=== PATIENT | female | born 1995 | race Caucasian/White ===

== ENCOUNTER 2017-09-05 09:10 | Emergency (ER) | payer OTHER ==
[~2017-09-05] VITALS: Ht 167.6 cm; Wt 55.0 kg
[2017-09-05 09:11] VITALS: BP 202/122; PULSE 102; RESP 16; TEMP 98.4; O2SAT 100
[2017-09-05 09:12] VITALS: BP 191/118
[2017-09-05] MEDS ORDERED: MORPHINE SULFATE 4 MG/ML INJ IV PUSH ONE (09:30)
[2017-09-05] MEDS ORDERED: SODIUM CHLORID 0.9% 500 ML INJ 500 ML IV ONE (09:30)
[2017-09-05] MEDS ORDERED: SODIUM CHLORIDE 0.9% FLUSH 10 ML FLUSH IVF PRN (09:30)
[2017-09-05] MEDS: METOPROLOL TARTRATE 5 MG/5 ML VIAL IVS SCH ×3 (09:35→09:58)
--- NOTE | 2017-09-05 09:39 | PD ---
HPI Chief Complaint: Chest Pain Time Seen by Provider: 09:23 Travel History International Travel<30 days: No Contact w/Intl Traveler<30days: No Traveled to known affect area: No History of Present Illness HPI 22-year-old female presents the emergency Department with sudden onset severe left sided chest pain with radiation in the left arm since last night at 3 AM. Patient states the pain is constant and not worsened by anything specific. She feels she can't take a deep breath. Patient is noted to be hypertensive and tachycardic in triage. Patient is thin and active and only medication is control. She denies changes in her period. She denies bleeding issues in the past. Pain is currently an 8 out of 10 and constant. Patient denies nausea, heartburn, or vomiting. Patient has no known drug allergies. PFSH Past Medical History Medical History: Denies Significant Hx Tetanus Vaccination: < 5 Years ?: Not LMP: 09/04/17 Past Surgical History Surgical History: No Previous Surgery Social History Alcohol Use: No Tobacco Use: No Substance Use: No Allergies-Medications (Allergen,Severity, Reaction): Coded Allergies: No Known Allergies (Unverified , 09/05/17) Reported Meds & Prescriptions Reported Meds & Active Scripts Active Reported [ Control] Review of Systems Except as stated in HPI: all other systems reviewed are Neg General / Constitutional: No: Fever Eyes: No: Visual changes HENT: No: Headaches Cardiovascular: Positive: Chest Pain or Discomfort, No: Palpitations, Irregular Rhythm, Tachycardia, Diaphoresis, Syncope, Dyspnea on exertion, Varicosities, Edema, Varicosities, Phlebitis, Claudication Respiratory: No: Cough, Shortness of Breath, Wheezing, Pleuritic Pain Gastrointestinal: No: Nausea, Vomiting, Diarrhea, Abdominal Pain Genitourinary: No: Dysuria Musculoskeletal: No: Pain Skin: No Rash Neurologic: No: Weakness Psychiatric: No: Depression Endocrine: No: Polydipsia Hematologic/Lymphatic: No: Easy Bruising Physical Exam Narrative GENERAL: She appears in moderate anxiety and tearing noted. SKIN: Warm and dry. Normal color. Normal turgor. HEAD: Atraumatic. Normocephalic. EYES: Pupils equal and round. No scleral icterus. No injection or drainage. ENT: No nasal bleeding or discharge. Mucous membranes pink and moist. Pharynx is clear. Airway is patent. NECK: Trachea midline. Supple nontender. CARDIOVASCULAR: Regular rate and rhythm. Occasional skipped beat. No murmurs appreciated. RESPIRATORY: No accessory muscle use. Clear to auscultation. Breath sounds equal bilaterally. GASTROINTESTINAL: Abdomen soft, non-tender, nondistended. Hepatic and splenic margins not palpable. MUSCULOSKELETAL: Extremities without clubbing, cyanosis, or edema. No obvious deformities. NEUROLOGICAL: Awake and alert. No obvious cranial nerve deficits. Motor grossly within normal limits. Five out of 5 muscle strength in the arms and legs. Normal speech. PSYCHIATRIC: Appropriate mood and affect; insight and judgment normal. Data Data Last Documented VS Vital Signs Date Time Temp Pulse Resp B/P (MAP) Pulse Ox O2 Delivery O2 Flow Rate FiO2 09/05/17 10:15 136/90 (105) 09/05/17 09:55 71 18 Room Air 09/05/17 09:11 98.4 100 Orders Orders Electrocardiogram (09/05/17:24) Ckmb (Isoenzyme) Profile (09/05/17:24) Complete Blood Count With Diff (09/05/17:24) Comprehensive Metabolic Panel (09/05/17:24) Magnesium (Mg) (09/05/17:24) Prothrombin Time / Inr (Pt) (09/05/17:24) Act Partial Throm Time (Ptt) (09/05/17:24) Troponin I (09/05/17:24) Chest, Single Ap (09/05/17:24) Ecg Monitoring (09/05/17:24) Bilateral Bp Monitoring (09/05/17:24) Iv Access Insert/Monitor (09/05/17:24) Oximetry (09/05/17:24) Oxygen Administration (09/05/17:24) Morphine Inj (Morphine Inj) (09/05/17:30) Sodium Chloride 0.9% Flush (Ns Flush) (09/05/17:30) Metoprolol Tartrate Inj (Lopressor Inj) (09/05/17:30) Sodium Chlorid 0.9% 500 Ml Inj (Ns 500 M (09/05/17:30) Ct Pulmonary Angiogram (09/05/17:24) Ed Urine Pregnancytest Poc (12/6/17 09:24) Ondansetron Inj (Zofran Inj) (09/05/17 11:45) Iohexol 350 Inj (Omnipaque 350 Inj) (09/05/17 12:20) Electrocardiogram (09/05/17 ) Labs Laboratory Tests Test 09/05/17 09:55 White Blood Count 4.1 TH/MM3 Red Blood Count 4.30 MIL/MM3 Hemoglobin 12.1 GM/DL Hematocrit 36.1 % Mean Corpuscular Volume 84.0 FL Mean Corpuscular Hemoglobin 28.2 PG Mean Corpuscular Hemoglobin Concent 33.6 % Red Cell Distribution Width 13.6 % Platelet Count 200 TH/MM3 Mean Platelet Volume 9.6 FL Neutrophils (%) (Auto) 53.8 % Lymphocytes (%) (Auto) 38.8 % Monocytes (%) (Auto) 6.1 % Eosinophils (%) (Auto) 0.9 % Basophils (%) (Auto) 0.4 % Neutrophils # (Auto) 2.2 TH/MM3 Lymphocytes # (Auto) 1.6 TH/MM3 Monocytes # (Auto) 0.3 TH/MM3 Eosinophils # (Auto) 0.0 TH/MM3 Basophils # (Auto) 0.0 TH/MM3 CBC Comment DIFF FINAL Differential Comment Prothrombin Time 10.0 SEC Prothromb Time International Ratio 1.0 RATIO Activated Partial Thromboplast Time 26.9 SEC Blood Urea Nitrogen 11 MG/DL Creatinine 0.72 MG/DL Random Glucose 90 MG/DL Total Protein 7.3 GM/DL Albumin 3.7 GM/DL Calcium Level 8.7 MG/DL Magnesium Level 1.9 MG/DL Alkaline Phosphatase 44 U/L Aspartate Amino Transf (AST/SGOT) 16 U/L Alanine Aminotransferase (ALT/SGPT) 28 U/L Total Bilirubin 0.3 MG/DL Sodium Level 139 MEQ/L Potassium Level 3.8 MEQ/L Chloride Level 106 MEQ/L Carbon Dioxide Level 24.8 MEQ/L Anion Gap 8 MEQ/L Estimat Glomerular Filtration Rate 100 ML/MIN Total Creatine Kinase 54 U/L Troponin I LESS THAN 0.02 NG/ML MDM Medical Decision Making Medical Screen Exam Complete: Yes Emergency Medical Condition: Yes Differential Diagnosis Chest pain. Cardiac syndrome. Pericarditis. PE. Narrative Course Based on the patient's history and physical PE is certainly suggestive. EKG shows with sinus arrhythmia with a rate of 77. No significant ST changes are noted. This is reviewed with Dr. Camarillo. Labs ordered including CBC, CMP, urine , cardiac panel. Chest x-ray and chest CTA is ordered to rule out PE. IV access is obtained patient is given 2 mg morphine IV as well as 5 mg propranolol 3. Patient is given 324 mg aspirin by mouth. Chest x-ray is unremarkable for acute process per radiologist. CBC is unremarkable. Coagulation studies are normal. Chemistries are normal. Patient is not . CTA shows no acute process per radiologist. Patient is reviewed with Dr. Camarillo who sees the patient as well. Vital signs stable. Patient is currently asymptomatic at time of exam. Repeat EKG shows sinus bradycardia without significant acute changes noted. Patient is felt stable for discharge home with close follow-up with her primary care physician. Patient can return to emergency Department with recurrent symptoms as needed. Diagnosis Primary Impression: Atypical chest pain Referrals: Primary Care Physician call for appointment Patient Instructions: Chest Pain (ED), General Instructions Additional Instructions: Chest x-ray is unremarkable for acute process per radiologist. CBC is unremarkable. Coagulation studies are normal. Chemistries are normal. Patient is not . CTA shows no acute process per radiologist. Patient is reviewed with Dr. Camarillo who sees the patient as well. Vital signs stable. Patient is currently asymptomatic at time of exam. Repeat EKG shows sinus bradycardia without significant acute changes noted. Patient is felt stable for discharge home with close follow-up with her primary care physician. Patient can return to emergency Department with recurrent symptoms as needed. Med/Other Pt SpecificInfo: No Meds Exist/No RX given Disposition: DISCHARGE HOME Condition: Stable Franklin Silver Sep 05, 2017 09:39
[2017-09-05 09:55] VITALS: BP 137/90; PULSE 71; RESP 18
--- NOTE | 2017-09-05 09:57 | RADRPT ---
EXAM DATE/TIME: 09/05/2017 09:33 [facility] COMPARISON: No previous studies available for comparison. INDICATIONS : Chest pain. MEDICAL HISTORY : None. SURGICAL HISTORY : ORIF right clavicle ENCOUNTER: Initial ACUITY: 1 week PAIN SCORE: 8/10 LOCATION: Left upper chest FINDINGS: A single view of the chest demonstrates the lungs to be symmetrically aerated without evidence of mas s, infiltrate or effusion. The cardiomediastinal contours are unremarkable. Right clavicular hardwar e in place. Osseous structures are intact. CONCLUSION: 1. No acute cardiopulmonary disease. Omar Abbott MD on September 05, 2017 at 9:55 Board Certified Radiologist. This report was verified electronically.
[2017-09-05 10:15] VITALS: BP 136/90
[2017-09-05 10:36] LABS: AUTOMATED NEUTROPHIL # 2.2 TH/MM3 (1.8-7.7); BASOPHIL % 0.4 % (0.0-2.0); EOSINOPHIL % 0.9 % (0.0-4.0); HEMATOCRIT 36.1 % (35.0-46.0); HEMO FLAGS DIFF FINAL; LYMPH % 38.8 % (9.0-44.0); LYMPHOCYTE # 1.6 TH/MM3 (1.0-4.8); MEAN CORPUSCULAR HEMOGLOBIN 28.2 PG (27.0-34.0); MEAN CORPUSCULAR HGB CONC 33.6 % (32.0-36.0); MONO % 6.1 % (0.0-8.0); NEUT % 53.8 % (16.0-70.0); PLATELET COUNT 200 TH/MM3 (150-450); RED CELL DISTRIBUTION WIDTH 13.6 % (11.6-17.2); WHITE BLOOD COUNT 4.1 TH/MM3 (4.0-11.0)
[2017-09-05 10:43] LABS: APTT (PATIENT) 26.9 SEC (24.3-30.1)
[2017-09-05 11:16] LABS: ALT (GPT) 28 U/L (10-53); ANION GAP 8 MEQ/L (5-15); AST (GOT) 16 U/L (15-37); BICARBONATE 24.8 MEQ/L (21.0-32.0); BLOOD UREA NITROGEN 11 MG/DL (7-18); CHLORIDE 106 MEQ/L (98-107); GLOMERULAR FILTRATION RATE 100 ML/MIN (>89); MAGNESIUM 1.9 MG/DL (1.5-2.5); POTASSIUM 3.8 MEQ/L (3.5-5.1); SODIUM (NA) 139 MEQ/L (136-145)
[2017-09-05 11:21] LABS: ALKALINE PHOSPHATASE 44 U/L (45-117); TOTAL BILIRUBIN ADULT 0.3 MG/DL (0.2-1.0)
[2017-09-05 11:28] LABS: CREATINE KINASE 54 U/L (26-192)
[2017-09-05] MEDS ORDERED: ONDANSETRON HCL 4 MG/2 ML VIAL IV PUSH ONE (11:45)
[2017-09-05] MEDS ORDERED: IOHEXOL 350 MG/ML 10 ML VIAL (for RAD DIAG) IVCONTRAST ONE (12:20)
--- NOTE | 2017-09-05 12:35 | RADRPT ---
EXAM DATE/TIME: 09/05/2017 12:07 [facility] COMPARISON: No previous studies available for comparison. INDICATIONS : Chest pain radiating to left arm. IV CONTRAST: 50 cc Omnipaque 350 (iohexol) IV RADIATION DOSE: 4.79 CTDIvol (mGy) MEDICAL HISTORY : None SURGICAL HISTORY : None. ENCOUNTER: Initial ACUITY: 1 day PAIN SCALE: 5/10 LOCATION: Left chest TECHNIQUE: Volumetric scanning of the chest was performed using a pulmonary embolism protocol MIP images were re constructed. Using automated exposure control and adjustment of the mA and/or kV according to patien t size, radiation dose was kept as low as reasonably achievable to obtain optimal diagnostic quality images. DICOM format image data is available electronically for review and comparison. Follow-up recommendations for detected pulmonary nodules are based at a minimum on nodule size and pa tient risk factors according to Fleischner Society Guidelines. FINDINGS: PULMONARY ARTERIES: No filling defects are seen in the pulmonary arteries through the segmental level. LUNGS: There is no consolidation or pneumothorax . No concerning pulmonary nodule is visualized. PLEURAE: There is no pleural thickening or pleural effusion. MEDIASTINUM: There is good visualization of the great vessels of the middle mediastinum. No evidence of mediastin al or hilar adenopathy/mass. MUSCULOSKELETAL: Within normal limits for patient age. MISCELLANEOUS: The visualized upper abdominal organs demonstrate no acute abnormality. CONCLUSION: Normal examination. Erickson Thompson MD on September 05, 2017 at 12:32 Board Certified Radiologist. This report was verified electronically.
[2017-09-05] MEDS ORDERED: BIRTH CONTROL (13:09)
--- NOTE | 2017-09-06 10:31 | EKG ---
Date Performed: 09/05/2017 Time Performed: 09:32:21 PTAGE: 22 years EKG: Sinus rhythm WITH SINUS ARRHYTHMIA NORMAL ECG NO PREVIOUS TRACING DOCTOR: Kailey Tavarez Interpretating Date/Time 09/06/2017 10:30:13
--- NOTE | 2017-09-06 17:42 | EKG ---
Date Performed: 09/05/2017 Time Performed: 13:07:02 PTAGE: 22 years EKG: SINUS BRADYCARDIA Nonspecific ST-T wave changes. BORDERLINE ECG PREVIOUS TRACING : 09/05/2017 09.32 DOCTOR: Jose G Jarrett Interpretating Date/Time 09/06/2017 17:41:13
== END 2017-09-05 13:30 | disposition home or self-care (01) ==
LOC: NEPD 09:10
DX: R07.89 Other chest pain (principal); R00.0 Tachycardia, unspecified
CPT/HCPCS: 71010; 71275; 80053; 82550; 83735; 84484; 84703; 85025; 85610; 85730; 93005; 96361; 96374; 96375; 99285; J2270; J2405; J7040; Q9967